=== PATIENT | female | born 1955 | race Caucasian/White ===

== ENCOUNTER 2019-08-04 09:35 | Observation (INO) | payer MEDICARE, MEDICAID ==
[2019-08-04 12:30] LABS: APPEARANCE,URINE CLEAR; BILIRUBIN,URINE NEGATIVE (NEGATIVE); COLOR,URINE YELLOW; GLUCOSE, URINE NEGATIVE (NEGATIVE); KETONES,URINE NEGATIVE (NEGATIVE); LEUKOCYTE ESTERASE,URINE LARGE (NEGATIVE); NITRITE,URINE NEGATIVE (NEGATIVE); PROTEIN,URINE NEGATIVE (NEGATIVE); URINE SPECIFIC GRAVITY 1.008; UROBILINOGEN,URINE NEGATIVE mg/dL (<2.0)
[2019-08-04 12:30] LABS: ABSOLUTE EOSINOPHILS # (AUTO) 0.1 10^3/uL (0.0-0.6); ABSOLUTE LYMPHOCYTES (AUTO) 1.4 10^3/uL (0.5-4.7); ABSOLUTE MONOCYTES (AUTO) 0.4 10^3/uL (0.1-1.4); ABSOLUTE NEUT (AUTO) 4.5 10^3/uL (1.7-8.2); BASOPHILS % (AUTO) 0.7 % (0-2); HEMATOCRIT 39.1 % (36.0-47.0); HEMOGLOBIN 13.4 g/dL (12.0-15.5); LYMPHOCYTES % (AUTO) 21.7 % (13-45); MEAN CORPUSCULAR HEMOGLOBIN 32.4 pg (27.0-33.4); MEAN CORPUSCULAR HGB CONC 34.4 g/dL (32.0-36.0); MEAN CORPUSCULAR VOLUME 94 fl (80-97); MONOCYTES % (AUTO) 6.5 % (3-13); PLATELET COUNT 320 10^3/uL (150-450); RED BLOOD COUNT 4.15 10^6/uL (3.72-5.28); RED CELL DISTRIBUTION WIDTH 13.2 % (11.5-14.0); SEGMENTED NEUTROPHILS % (AUTO) 70.1 % (42-78); TOTAL CELLS COUNTED % (AUTO) 100 %; WHITE BLOOD COUNT 6.3 10^3/uL (4.0-10.5)
--- NOTE | 2019-08-04 12:30 | ER Document Report ---
ED General - General Chief Complaint: Crying Stated Complaint: SHAKING, RESPONDING SLOW Time Seen by Provider: 08/04/19 12:29 Information source: Patient, Legal Guardian, Friend - actually her aid/friend since december TRAVEL OUTSIDE OF THE [place] IN LAST 30 DAYS: No - HPI Notes: 64wf brought in by caregiver because she is not acting like herself at all, last known normal was at 11 PM tonight she is usually ambulatory able to dress her self very talkative but today caregiver says she found her at 6 AM sitting on the bed naked unable to really put her close on she went ahead and just helped her put her clothes on she did not notice any facial droop at that time or anything specifically other than that when they went to walk she seemed to be somewhat off balance and kind of leaning to one side needing to hold onto things so she helped her some to avoid any falls and then they were going to go to daycare program but the business services director said she was shaky crying and therefore urgent care nurse practitioner brought her in immediately she says today's her birthday and she has been excited about this for a long time and today now is not talkative not herself at all. History of seizures but has not had seizures in a very long time, they did change her medicines because her Dilantin level was low per caregiver unsure about the timeframe of that. All medicines managed by the care facility. She has had some intermittent crying and depression which is being followed to. No known falls has been eating well drinking well no known fever chills sweats vomiting diarrhea. Caregiver unsure of what her actual seizure activity is since she is been with her since December she has not had seizures. She is not on any blood thinning medications no aspirin no other blood thinners. Home medication list reviewed that was brought as a print out from care facility. Phenytoin 100 mg 3 times daily, multivitamin, primidone 250 twice daily, lisinoprilHCTZ 1012 0.5 daily daily, paroxetine 40 nightly, alendronate 70 weekly, methocarbamol 502 times a day, [employer] T TI 3 mg once a day - Related Data Allergies/Adverse Reactions: No Known Allergies Allergy (Unverified 08/04/19 18:43) Past Medical History - Social History Smoking Status: Never Smoker Family History: None, Reviewed & Not Pertinent Patient has suicidal ideation: No Patient has homicidal ideation: No Review of Systems - Review of Systems Constitutional: denies: Chills, Diaphoresis, Weakness, Weight gain, Weight loss, Recent illness EENT: No symptoms reported Cardiovascular: No symptoms reported Respiratory: No symptoms reported Gastrointestinal: No symptoms reported Genitourinary: No symptoms reported Female Genitourinary: No symptoms reported Musculoskeletal: No symptoms reported Skin: No symptoms reported Hematologic/Lymphatic: No symptoms reported Neurological/Psychological: See HPI Physical Exam - Vital signs Vitals: Temp Pulse Resp BP Pulse Ox 98.0 F 83 18 161/87 H 96 08/04/19 09:42 08/04/19 09:42 08/04/19 09:42 08/04/19 09:42 08/04/19 09:42 - Notes Notes: ___Gen:___ Accompanied by caregiver who knows her very well. VS wnl at time of triage and in my exam wnl. Intermittently tearful. NAD or inc WOB. +Alert, able to follow commands to close eyes perform the motor exam within the NIH scale. Able to name objects, slow to answer many questions though is able to say her birthday month is [birth year] but cannot produce the date of the year which caregiver says is not her baseline. No visual field deficits positive dysmetria with right [id number] negative on the left. No apraxia of the lower extremities. Did not stand patient but history was positive for truncal apraxia. Is unable to repeat phrases. Motor exam is intact otherwise. +interactive/cooperative. ___HEENT:___ NCAT. No gross ocular discharge, conjunctival injection/pallor, or sleral icterus. Ext ears w/o deformity/otorrhea. Nares patent w/o (bloody) discharge. No stridor. No difficulty phonating or controlling secretions. Mouth/oropharynx musosa is pink/moist w/o deformity/edema/lesions. Base of uv heike/posterior oropharynx visible, symmetric-appearing w/o mass effect/shift. ___Neck:___ No apparent difficulty w/ FROM. No gross deformity, masses, or skin changes. No palpable masses or TMG or gross LAD in cervical/submental/post- auricular zones. ___Chest:___ No inc labor symmetric b/l chest rise w/ spontaneous respirations at rate WNL. On auscultation no gross WRR or focal findings. +symmetric full BS heard all post/lateral/ant lung oshea. ___CV:___ All ext WWP, pulses symmetric RRR easily palpable and symmetric at distal UE/LE. No peripheral/truncal edema or color changes to suggest PVD. No JVD w/ HOB @ 45deg. Quiet precordium w/o heaves/lifts. On auscultation no gross MRG. ___MSK:___No gross joint or bony deformities. No overlying skin changes, swelling, or warmth. No apparent difficulty flexing at hip, knee, ankle, shoulder, elbow, wrists ___Abd:___ Benign exam. No distention/color changes/obvious masses. BS present on auscultation. Nontender to light/deep palpation in all 4 quadrants, no palpable masses or OMG. ___GU:___ No suprapubic distention or ttp. Clear urine per specimen container. No gross ttp or palpable masses at CVA or inguinal regions b/l. ___Skin:___ intact, grossly healthy appearing for age. No obvious rashes, skin breakdown/wounds or color changes. ___Neuro:___ psychomotor slowing, takes while to answer responses some appears never can get out response some is appropriate response some inappropriate response. seems slightly frustrated w/ speech caregivers say isn't usual. Alert interactive, calm cooperative, ADAMS w/ intention. Ambulatory w/ assistance +unsteadiness (-) romberg. No gross CN deficits. Strength symmetric 5/5 in upper/lower major mm groups tested. Sensation to light touch grossly intact/symmetric distal UE/LE. finger to nose b/l fine dysmetria no tremor, no rigidity or inc tone in ext. ___Psych:___ tearful when we discuss why she's not acting like herself, but good eye contact, smiles at appropriate social interactions. Denies SI/HI upon direct questioning. +Well-kempt. +Good hygiene. Not disheveled. Not anxious or reserved-appearing. No apparent responses to int AVH/stimuli. Course - Re-evaluation Re-evalutation: 08/12/19 13:18 given change in behavior per aids/legal guardian adm to floor for further monitoring delirium. adm physician considering she's been postictal which is certainly very possible explanation here. out of window for any further stroke imagging/interventions and her finfer nose and gait did seem better hours after ED stay from when i first examined her. labs reviewed wnl. ct head and cxr's reviewed wnl. UA 13 wbc and LE only. would also cont to consider urine if delirium wasn't cleanring - Vital Signs Vital signs: Temp Pulse Resp BP Pulse Ox 98.0 F 78 17 146/87 H 95 08/05/19 17:27 08/05/19 17:27 08/05/19 17:27 08/05/19 17:27 08/05/19 17:27 - Laboratory Result Diagrams: 08/04/19 10:26 08/05/19 03:58 Laboratory results interpreted by me: 08/04/19 08/04/19 10:26 12:09 Carbon Dioxide 33 H Alkaline Phosphatase 244 H Ur Leukocyte Esterase LARGE H Discharge - Discharge Clinical Impression: Delirium Condition: Stable Disposition: ADMITTED INPATIENT Admitting Provider: Robb (Hospitalist) Unit Admitted: Medical Floor
[2019-08-04 12:40] LABS: ALBUMIN 4.5 g/dL (3.5-5.0); ALKALINE PHOSPHATASE 244 U/L (38-126); ANION GAP 6 (5-19); ASPARTATE AMINO TRANSFERASE 36 U/L (14-36); BILIRUBIN,DIRECT 0.2 mg/dL (0.0-0.4); BILIRUBIN,TOTAL 0.4 mg/dL (0.2-1.3); BLOOD UREA NITROGEN 15 mg/dL (7-20); CALCIUM 9.4 mg/dL (8.4-10.2); CARBON DIOXIDE 33 mmol/L (22-30); CHLORIDE 99 mmol/L (98-107); GLUCOSE 101 mg/dL (75-110); POTASSIUM 3.9 mmol/L (3.6-5.0)
[2019-08-04 13:38] LABS: INTERNATIONAL RATION (INR) 1.05; PROTHROMBIN TIME 13.7 SEC (11.4-15.4)
--- NOTE | 2019-08-04 13:47 | RADIOLOGY REPORT (SQ) ---
EXAM DESCRIPTION: CHEST SINGLE VIEW COMPLETED DATE/TIME: 08/04/2019 1:37 pm REASON FOR STUDY: stroke protocol COMPARISON: None. EXAM PARAMETERS: NUMBER OF VIEWS: One view. TECHNIQUE: Single frontal radiographic view of the chest acquired. RADIATION DOSE: NA LIMITATIONS: None. FINDINGS: LUNGS AND PLEURA: No opacities, masses or pneumothorax. No pleural effusion. MEDIASTINUM AND HILAR STRUCTURES: No masses. Contour normal. HEART AND VASCULAR STRUCTURES: Heart normal in size. Normal vasculature. BONES: No acute findings. HARDWARE: None in the chest. OTHER: No other significant finding. IMPRESSION: NO ACUTE RADIOGRAPHIC FINDING IN THE CHEST. TECHNICAL DOCUMENTATION: JOB ID: [id number] [employer]- All Rights Reserved Reading location - IP/workstation name: [email or web address]
--- NOTE | 2019-08-04 13:55 | RADIOLOGY REPORT (SQ) ---
EXAM DESCRIPTION: CT HEAD WITHOUT COMPLETED DATE/TIME: 08/04/2019 1:42 pm REASON FOR STUDY: aphasia apraxia RUE, truncal COMPARISON: None. TECHNIQUE: Axial images acquired through the brain without intravenous contrast. Images reviewed wi th bone, brain and subdural windows. Additional sagittal and coronal reconstructions were generated. Images stored on PACS. All CT scanners at this facility use dose modulation, iterative reconstruction, and/or weight based d osing when appropriate to reduce radiation dose to as low as reasonably achievable (ALARA). [facility]: Dose Right [facility]: CareDose [facility]: Dose Right [facility]: Teradose 4D [facility]: Smart Pixel[employer]ents RADIATION DOSE: CT Rad equipment meets quality standard of care and radiation dose reduction techniq ues were employed. CTDIvol: 53.2 mGy. DLP: 1044 mGy-cm. mGy. LIMITATIONS: None. FINDINGS: VENTRICLES: Prominent. CEREBRUM: No masses. No hemorrhage. No midline shift. Areas of low density in the white matter mos t likely due to chronic micro-vascular ischemic change. No evidence for acute infarction. CEREBELLUM: No masses. No hemorrhage. No alteration of density. No evidence for acute infarction. EXTRAAXIAL SPACES: Mild age-related involutional change. No fluid collections. No masses. ORBITS AND GLOBE: No intra- or extraconal masses. Normal contour of globe without masses. CALVARIUM: No fracture. PARANASAL SINUSES: No fluid or mucosal thickening. SOFT TISSUES: No mass or hematoma. OTHER: No other significant finding. IMPRESSION: MILD CHRONIC CHANGES OF ATROPHY AND MICROVASCULAR ISCHEMIA. NO ACUTE PROCESS. EVIDENCE OF ACUTE STROKE: NO. TECHNICAL DOCUMENTATION: JOB ID: [id number] Quality ID # [id number]: Final reports with documentation of one or more dose reduction techniques (e.g., Au tomated exposure control, adjustment of the mA and/or kV according to patient size, use of iterative reconstruction technique) 2010 [employer]- All Rights Reserved Reading location - IP/workstation name: [email or web address]
[2019-08-04] MEDS ORDERED: LEVETIRACETAM 1000 MG/NACL-ISO 1,000 MG/100 ML RTUPB IV ONE ×2 (19:15→22:00)
--- NOTE | 2019-08-04 19:59 | PDOC H&P ---
History of Present Illness Admission Date/PCP: 08/04/19 17:37 History of Present Illness: JOSE CHUN is a 64 year old female with a history of some form of cognitive impairment of unknown etiology, possibly from recurrent seizures as a child, who does have a history of seizures and is on Dilantin, who presents after an episode that she had today. She lives in a [facility] and has a caregiver that spends a lot of time with her and was coming to get her to take her to her adult daycare as per her usual. Caregiver said that whenever she arrived, she found the patient sitting naked on the edge of her bed staring off into space and would not respond to her. She said she stayed like this for several minutes, the caregiver thought that maybe the patient needed her medications and so she went to fix them for her as she usually does, and when she came back the patient was still staring into space. She called her name again the patient responded seemed much more lethargic than usual. The caregiver said that the patient's close were dropped on to the floor as if the patient had been attempting to get her close on and then sat down and then just drop her close on the floor beside her. The caregiver try to get the patient up and ambulate her to the bathroom she said she was very wobbly and so she said her back down on the bed. She said the patient was not as talkative and interactive that she normally was but she was able to give her her medications and get her into the car to take her to adult daycare. Apparently when she was in adult daycare she was crying uncon trollably and so they called the caregiver back caregiver came to get her to bring her to the hospital. The caregiver says that she has gotten progressively more interactive since she picked her up from daycare.. Whenever I went in the room to see her the patient was eating roast beef with pasta and vegetables and the caregiver said she was back to normal. Patient did not have any substantial laboratory abnormalities, but she did have an elevated alkaline phosphatase. The caregiver said that the patient's neurologist that she sees in [place] had recently increased her Dilantin to 3 times a day because some levels were checked a couple of weeks ago and her Dilantin level was "undetectable." Social History Smoking Status: Never Smoker Family History Parental Family History Reviewed: No - Unable to obtain Children Family History Reviewed: NA Sibling(s) Family History Reviewed.: No - Unable to obtain Medication/Allergy Home Medications: Alendronate Sodium [Fosamax 70 mg Tablet] 70 mg PO CAMACHO@1000 08/04/19 Brexpiprazole [Rexulti] 3 mg PO DAILY 08/04/19 Calcium Carbonate/Vitamin D3 [Calcium 500-Vit D3 200 Tablet] 1 tab PO DAILY 08/04/19 Lisinopril/Hydrochlorothiazide [Zestoretic 10-12.5 mg Tablet] 1 tab PO DAILY 08/04/19 Multivitamin [One-A-Day Essential] 1 tab PO DAILY 08/04/19 Paroxetine HCl [Paxil] 40 mg PO QHS 08/04/19 Phenytoin Sodium Extended [Dilantin 100 mg Capsule.er] 100 mg PO TID 08/04/19 Primidone [Mysoline 250 mg Tablet] 250 mg PO BID 08/04/19 Allergies/Adverse Reactions: No Known Allergies Allergy (Unverified 08/04/19 18:43) Review of Systems ROS unobtainable: Due to mental status Physical Exam Vital Signs: Temp Pulse Resp BP Pulse Ox 98.0 F 83 21 H 134/82 H 96 08/04/19 09:42 08/04/19 09:42 08/04/19 18:02 08/04/19 18:02 08/04/19 18:01 Intake & Output 08/03/19 08/04/19 08/05/19 06:59 06:59 06:59 Weight 87.09 kg General appearance: PRESENT: no acute distress, cooperative, disheveled, obese, other - Sitting up in bed eating dinner as described in the HPI Head exam: PRESENT: atraumatic, normocephalic Eye exam: PRESENT: EOMI, PERRLA. ABSENT: conjunctival injection, nystagmus, scleral icterus Ear exam: PRESENT: normal external ear exam Mouth exam: PRESENT: moist, neck supple Throat exam: ABSENT: post pharyngeal erythema Neck exam: PRESENT: full ROM. ABSENT: carotid bruit, JVD, lymphadenopathy, meningismus, tenderness, thyromegaly Respiratory exam: PRESENT: clear to auscultation neftaly, symmetrical, unlabored. ABSENT: accessory muscle use, chest wall tenderness, crackles, prolonged exp iratory phas, rhonchi, tachypnea, wheezes Cardiovascular exam: PRESENT: RRR, +S1, +S2 Pulses: PRESENT: normal carotid pulses Vascular exam: PRESENT: normal capillary refill GI/Abdominal exam: PRESENT: normal bowel sounds, soft. ABSENT: distended, guarding, rebound, tenderness Extremities exam: ABSENT: clubbing, pedal edema Musculoskeletal exam: PRESENT: normal inspection. ABSENT: deformity Neurological exam: PRESENT: alert, awake, oriented to person, CN II-XII grossly intact, other - At baseline according to her caregiver. ABSENT: oriented to place, oriented to time, oriented to situation, motor sensory deficit Psychiatric exam: PRESENT: flat affect Skin exam: PRESENT: dry, warm Results Laboratory Results: 08/04/19 10:26 08/04/19 10:26 08/04/19 08/04/19 08/04/19 10: 10: 12:09 WBC 6.3 RBC 4.15 Hgb 13.4 Hct 39.1 MCV 94 MCH 32.4 MCHC 34.4 RDW 13.2 Plt Count 320 Seg Neutrophils % 70.1 Sodium 138.0 Potassium 3.9 Chloride 99 Carbon Dioxide 33 H Anion Gap 6 BUN 15 Creatinine 0.78 Est GFR ( Amer) > 60 Glucose 101 Calcium 9.4 Total Bilirubin 0.4 AST 36 Alkaline Phosphatase 244 H Total Protein 8.0 Albumin 4.5 Urine Color YELLOW Urine Appearance CLEAR Urine pH 7.0 Ur Specific [place] 1.008 Urine Protein NEGATIVE Urine Glucose (UA) NEGATIVE Urine Ketones NEGATIVE Urine Blood NEGATIVE Urine Nitrite NEGATIVE Ur Leukocyte Esterase LARGE H Urine WBC (Auto) 13 Urine RBC (Auto) 3 Impressions: Chest X-Ray 08/04/19 00:00 IMPRESSION: NO ACUTE RADIOGRAPHIC FINDING IN THE CHEST. Head CT 08/04/19 12:55 IMPRESSION: MILD CHRONIC CHANGES OF ATROPHY AND MICROVASCULAR ISCHEMIA. NO ACUTE PROCESS. EVIDENCE OF ACUTE STROKE: NO. Assessment and Plan - Diagnosis (1) Seizure Is this a current diagnosis for this admission?: Yes Plan: I am not sure of the exact classification of the seizure, because it seemed to lack generalized tonic-clonic or grand mal sort of activity according to the description I received when the caregiver found her, but we do not know what she looked like in the preceding time before she was found and she had a postictal state and her alkaline phosphatase was elevated, which may or may not be significant. She had no other laboratory abnormalities. Apparently the staff at the facility where she lives gives her her medications, but according to the caregiver her recent Dilantin level was undetectable on 100 mg twice a day and so it was increased to 3 times a day. We are going to check her Dilantin level to see if she is therapeutic. We will also load her with Keppra and start her on that twice a day. We will make sure that she has follow-up with her neurologist. She had a positive leukocyte esterase on her urinalysis but I do not think that that is enough to constitute a diagnosis of urinary tract infection, especially since this patient displays no signs of infection. - Time Time Spent with patient: 35 or more minutes - Inpatient Certification Based on my medical assessment, after consideration of the patient's comorbid ities, presenting symptoms, or acuity I expect that the services needed warrant INPATIENT care.: Yes I certify that my determination is in accordance with my understanding of Medicare's requirements for reasonable and necessary INPATIENT services [42 CFR 412.3e].: Yes Medical Necessity: Significant Comorbidiites Make Outpatient Treatment Too Risky, Need Close Monitoring Due to Risk of Patient Decompensation, Need For Continuous Telemetry Monitoring, Need for Neurological Checks
[2019-08-04] MEDS ORDERED: PAROXETINE HCL PO SCH (22:00)
[2019-08-04] MEDS ORDERED: LEVETIRACETAM 500 MG TABLET PO SCH (22:00)
[2019-08-04] MEDS ORDERED: PAROXETINE HCL 20 MG TABLET PO SCH (22:00)
[2019-08-04] MEDS ORDERED: INFLUENZA QUAD (6MOS+) 2019-20 VAC 0.5 ML SYR IM ONE (23:31)
[2019-08-05] MEDS: PHENYTOIN SODIUM EXTENDED 100 MG CAPSULE PO SCH ×3 (05:35→13:12)
[2019-08-05 05:53] LABS: ALBUMIN 3.9 g/dL (3.5-5.0); ALKALINE PHOSPHATASE 192 U/L (38-126); ANION GAP 8 (5-19); ASPARTATE AMINO TRANSFERASE 31 U/L (14-36); BILIRUBIN,DIRECT 0.1 mg/dL (0.0-0.4); BILIRUBIN,TOTAL 0.4 mg/dL (0.2-1.3); BLOOD UREA NITROGEN 20 mg/dL (7-20); CALCIUM 8.7 mg/dL (8.4-10.2); CARBON DIOXIDE 31 mmol/L (22-30); CHLORIDE 102 mmol/L (98-107); GLUCOSE 92 mg/dL (75-110); POTASSIUM 3.5 mmol/L (3.6-5.0); TOTAL PROTEIN 6.6 g/dL (6.3-8.2)
[2019-08-05] MEDS ORDERED: PRIMIDONE 250 MG TABLET PO SCH (10:00)
[2019-08-05] MEDS ORDERED: LISINOPRIL 10 MG TABLET PO SCH (10:00)
[2019-08-05] MEDS ORDERED: LEVETIRACETAM 500 MG TABLET PO SCH (10:00)
[2019-08-05] MEDS ORDERED: (PENDING PHARMACY ID) (Brexpiprazole [Rexulti] 3 MG) PO SCH (10:00)
[2019-08-05] MEDS ORDERED: FOLIC ACID PO SCH (10:00)
[2019-08-05] MEDS ORDERED: HYDROCHLOROTHIAZIDE 12.5 MG TABLET PO SCH (10:00)
[2019-08-05] MEDS ORDERED: MULTIVITAMIN PO SCH (10:00)
[2019-08-05] MEDS ORDERED: IRON PO SCH (10:00)
[2019-08-05] MEDS ORDERED: (PENDING PHARMACY ID) (Lisinopril/Hydrochlorothiazide [Lisinopril-Hctz 10-12.5 Mg Tab] 1 T PO SCH (10:00)
[2019-08-05] MEDS ORDERED: [UNRECOGNIZED DRUG - OTHER] PO SCH (10:00)
[2019-08-05] MEDS ORDERED: MULTIVITAMINS W-IRON TABLET, CHEWABLE PO SCH (10:00)
--- NOTE | 2019-08-05 11:47 | PDOC DISCHARGE SUMMARY ---
Impression - Admit/DC Date/PCP Admission Date/Primary Care Provider: 08/04/19 17:37 Discharge Date: 08/05/19 - Assessment Summary: She was admitted through the emergency room for seizure activity. Patient has known seizures. Within the last couple weeks patient's Dilantin was increased to 3 times daily because of subtherapeutic levels. Urine also appears to be infected at time of discharge culture is pending. Patient had no further seizure activity once in the hospitall. Patient does have cognitive dysfunction and is back to her baseline. Keppra was ordered to be added to the Dilantin 500 mg twice daily. She was also discharged home on Bactrim DS 1 tablet twice daily for 7 days. Patient is actually [facility] to [facility]. - Additional Information Discharge Diet: As Tolerated Discharge Activity: Activity As Tolerated Prescriptions: Sulfamethoxazole/Trimethoprim [Bactrim Ds Tablet] 1 each PO BID 7 Days #14 tablet Levetiracetam [Keppra 500 mg Tablet] 500 mg PO Q12 30 Days #60 tablet Home Medications: Alendronate Sodium [Fosamax 70 mg Tablet] 70 mg PO CAMACHO@1000 08/04/19 Brexpiprazole [Rexulti] 3 mg PO DAILY 08/04/19 Calcium Carbonate/Vitamin D3 [Calcium 500-Vit D3 200 Tablet] 1 tab PO DAILY 08/04/19 Lisinopril/Hydrochlorothiazide [Zestoretic 10-12.5 mg Tablet] 1 tab PO DAILY 08/04/19 Multivitamin [One-A-Day Essential] 1 tab PO DAILY 08/04/19 Paroxetine HCl [Paxil] 40 mg PO QHS 08/04/19 Phenytoin Sodium Extended [Dilantin 100 mg Capsule.er] 100 mg PO TID 08/04/19 Primidone [Mysoline 250 mg Tablet] 250 mg PO BID 08/04/19 Levetiracetam [Keppra 500 mg Tablet] 500 mg PO Q12 30 Days #60 tablet 08/05/19 Multivitamins W-Iron [Flintstones Chewable Multivit W/Fe Tab] 2 tab PO DAILY tab.chew 08/05/19 Paroxetine HCl [Paxil 20 mg Tablet] 40 mg PO QHS tablet 08/05/19 Phenytoin Sodium Extended [Dilantin 100 mg Capsule.er] 100 mg PO TID capsule 08/05/19 Primidone [Mysoline 250 mg Tablet] 250 mg PO BID tablet 08/05/19 Sulfamethoxazole/Trimethoprim [Bactrim Ds Tablet] 1 each PO BID 7 Days #14 tablet 08/05/19 History of Present Illiness History of Present Illness: JOSE CHUN is a 64 year old female Physical Exam Vital Signs: Temp Pulse Resp BP Pulse Ox 98.8 F 89 17 105/64 92 08/05/19 09:14 08/05/19 09:14 08/05/19 09:14 08/05/19 09:14 08/05/19 09:14 Intake & Output 08/04/19 08/05/19 08/06/19 06:59 06:59 06:59 Intake Total 260 Output Total 0 Balance 260 Weight 85 kg Results Laboratory Results: WBC 6.3 10^3/uL (4.0-10.5) 08/04/19 10: RBC 4.15 10^6/uL (3.72-5.28) 08/04/19 10:26 Hgb 13.4 g/dL (12.0-15.5) 08/04/19 10:26 Hct 39.1 % (36.0-47.0) 08/04/19 10:26 MCV 94 fl (80-97) 08/04/19 10:26 MCH 32.4 pg (27.0-33.4) 08/04/19 10:26 MCHC 34.4 g/dL (32.0-36.0) 08/04/19 10:26 RDW 13.2 % (11.5-14.0) 08/04/19 10:26 Plt Count 320 10^3/uL (150-450) 08/04/19 10:26 Lymph % (Auto) 21.7 % (13-45) 08/04/19 10:26 [place] % (Auto) 6.5 % (3-13) 08/04/19 10:26 Eos % (Auto) 1.0 % (0-6) 08/04/19 10:26 Baso % (Auto) 0.7 % (0-2) 08/04/19 10:26 Absolute Neuts (auto) 4.5 10^3/uL (1.7-8.2) 08/04/19 10:26 Absolute Lymphs (auto) 1.4 10^3/uL (0.5-4.7) 08/04/19 10:26 Absolute Monos (auto) 0.4 10^3/uL (0.1-1.4) 08/04/19 10:26 Absolute Eos (auto) 0.1 10^3/uL (0.0-0.6) 08/04/19 10:26 Absolute Basos (auto) 0.0 10^3/uL (0.0-0.2) 08/04/19 10:26 Seg Neutrophils % 70.1 % (42-78) 08/04/19 10:26 PT 13.7 SEC (11.4-15.4) 08/04/19 10:26 INR 1.05 08/04/19 10:26 Sodium 140.6 mmol/L (137-145) 08/05/19 03:58 Potassium 3.5 mmol/L (3.6-5.0) L 08/05/19 03:58 Chloride 102 mmol/L (98-107) 08/05/19 03:58 Carbon Dioxide 31 mmol/L (22-30) H 08/05/19 03:58 Anion Gap 8 (5-19) 08/05/19 03:58 BUN 20 mg/dL (7-20) 08/05/19 03:58 Creatinine 1.11 mg/dL (0.52-1.25) 08/05/19 03:58 Est GFR ( Amer) > 60 (>60) 08/05/19 03:58 Est GFR (MDRD) Non-Af 50 (>60) L 08/05/19 03:58 Glucose 92 mg/dL (75-110) 08/05/19 03:58 Calcium 8.7 mg/dL (8.4-10.2) 08/05/19 03:58 Total Bilirubin 0.4 mg/dL (0.2-1.3) 08/05/19 03:58 Direct Bilirubin 0.1 mg/dL (0.0-0.4) 08/05/19 03:58 Neonat Total Bilirubin Not Reportable 08/05/19 03:58 Neonat Direct Bilirubin Not Reportable 08/05/19 03:58 Neonat Indirect Bili Not Reportable 08/05/19 03:58 AST 31 U/L (14-36) 08/05/19 03:58 ALT 26 U/L (<35) 08/05/19 03:58 Alkaline Phosphatase 192 U/L (38-126) H 08/05/19 03:58 Total Protein 6.6 g/dL (6.3-8.2) 08/05/19 03:58 Albumin 3.9 g/dL (3.5-5.0) 08/05/19 03:58 Urine Color YELLOW 08/04/19 12:09 Urine Appearance CLEAR 08/04/19 12:09 Urine pH 7.0 (5.0-9.0) 08/04/19 12:09 Ur Specific [place] 1.008 08/04/19 12:09 Urine Protein NEGATIVE mg/dL (NEGATIVE) 08/04/19 12:09 Urine Glucose (UA) NEGATIVE mg/dL (NEGATIVE) 08/04/19 12:09 Urine Ketones NEGATIVE mg/dL (NEGATIVE) 08/04/19 12:09 Urine Blood NEGATIVE (NEGATIVE) 08/04/19 12:09 Urine Nitrite NEGATIVE (NEGATIVE) 08/04/19 12:09 Urine Bilirubin NEGATIVE (NEGATIVE) 08/04/19 12:09 Urine Urobilinogen NEGATIVE mg/dL (<2.0) 08/04/19 12:09 Ur Leukocyte Esterase LARGE (NEGATIVE) H 08/04/19 12:09 Urine WBC (Auto) 13 /HPF 08/04/19 12:09 Urine RBC (Auto) 3 /HPF 08/04/19 12:09 Urine Bacteria (Auto) TRACE /HPF 08/04/19 12:09 Squamous Epi Cells Auto <1 /HPF 08/04/19 12:09 Urine Mucus (Auto) RARE /LPF 08/04/19 12:09 Urine Ascorbic Acid NEGATIVE (NEGATIVE) 08/04/19 12:09 Phenytoin 10.5 ug/mL (10.0-20.0) 08/04/19 21:09 Impressions: Chest X-Ray 08/04/19 00:00 IMPRESSION: NO ACUTE RADIOGRAPHIC FINDING IN THE CHEST. Head CT 08/04/19 12:55 IMPRESSION: MILD CHRONIC CHANGES OF ATROPHY AND MICROVASCULAR ISCHEMIA. NO ACUTE PROCESS. EVIDENCE OF ACUTE STROKE: NO. Stroke Is this a Stroke Patient?: No Acute Heart Failure - Is this a Heart Failure Patient?: No
[2019-08-05 17:40] VITALS: BP 146/87
== END 2019-08-05 17:49 | disposition short-term general hospital (02) ==
LOC: ER 09:35 → INTOOBSV 17:37 → EH 17:37 → 4N 19:46
PROVIDERS: ADMIT Family Medicine; ATTEND Family Medicine
DX: R56.9 Unspecified convulsions (principal); N39.0 Urinary tract infection, site not specified; F32.9 Major depressive disorder, single episode, unspecified; F09 Unspecified mental disorder due to known physiological condition; R74.8 Abnormal levels of other serum enzymes; E66.9 Obesity, unspecified; R48.2 Apraxia; R41.0 Disorientation, unspecified; Z79.899 Other long term (current) drug therapy
CPT/HCPCS: 99285; 36415 ×2; 80185; 85025; 85610; 80053 ×2; 81001; 71045; 70450; A9270 ×6; J1953; J3490